=== PATIENT | male | born 1945 | race Caucasian/White ===

== ENCOUNTER 2018-02-19 06:56 | Day surgery (SDC) | payer BC, MEDICARE ==
[2018-02-19] MEDS ORDERED: Lactated Ringers 1,000 ML IV SCH (07:15)
[2018-02-19] MEDS ORDERED: fentaNYL 100 MCG/2 ML SDV ONE (07:20)
[2018-02-19] MEDS ORDERED: Propofol 200 MG/20 ML SDV ONE (07:20)
[2018-02-19] MEDS ORDERED: Midazolam 1 MG/ML 2 ML SDV ONE (07:20)
[2018-02-19 09:24] VITALS: BP 140/76
--- NOTE | 2018-02-19 10:48 | OR ---
DATE OF PROCEDURE: 02/19/2018 PREOPERATIVE DIAGNOSIS: Colon cancer screening. Siblings had colon polyps. POSTOPERATIVE DIAGNOSES: Diverticulosis; small white plaque with surrounding erythema, 50 cm from the anal verge; and siblings with colon polyps. PROCEDURES PERFORMED: Colonoscopy to the cecum with biopsy resection of a small white plaque with surrounding erythema, 50 cm from the anal verge. ANESTHESIA: IV anesthesia with monitored anesthesia care. INDICATIONS: This 72-year-old white male is referred for a colonoscopy. He says his last colonoscopic exam was done 14 years ago. He does note that his brother and sisters both had colon polyps. His brother is of cancer, which it sounds like was more stomach than colon. I counseled him for a colonoscopy with possible biopsy and/or polypectomy including risks and alternatives, and he gave his informed consent to proceed. DESCRIPTION OF PROCEDURE: The patient was placed in the left lateral decubitus position. Time-out was held. A rectal exam was performed, which was unremarkable. The flexible video Olympus colonoscope was introduced through his anus, up his rectum and out his colon, all the way to the cecum. En route, we saw multiple left-sided diverticula. There was no bleeding or inflammation associated with them. Once the cecum was reached, the scope was slowly withdrawn, examining the mucosa throughout. No additional mucosal abnormalities were noted until we reached 50 cm from the anal verge. Here, we saw a small white plaque with surrounding erythema. This was removed with two bites of the biopsy forceps and was sent to the laboratory. The scope was withdrawn further with no other lesions noted. The scope was retroflexed in the rectum with the distal rectum appearing unremarkable. The scope was straightened and removed. He tolerated the procedure well. Keegan Fowler MD /[id number]
== END 2018-02-19 09:30 | disposition home or self-care (01) ==
LOC: JP.SDS 06:56
PROVIDERS: ATTEND Surgery
DX: Z12.11 Encounter for screening for malignant neoplasm of colon (principal); K57.30 Diverticulosis of large intestine without perforation or abscess without bleeding; K52.1 Toxic gastroenteritis and colitis; K62.89 Other specified diseases of anus and rectum; Z87.891 Personal history of nicotine dependence; Z83.71 Family history of colonic polyps; Z80.9 Family history of malignant neoplasm, unspecified
CPT/HCPCS: 45380; J2250; J2704; J3010; J7120